=== PATIENT | male | born 1950 | race Caucasian/White ===

== ENCOUNTER 2018-10-18 10:57 | Emergency (ER) | payer OTHER ==
[~2018-10-18] VITALS: Ht 177.8 cm; Wt 94.3 kg
[2018-10-18 11:02] VITALS: Ht 177.8 cm; Wt 94.3 kg
[2018-10-18 14:03] VITALS: BP 145/71
== END 2018-10-18 14:03 | disposition home or self-care (01) ==
LOC: ED 10:57
DX: L03.011 Cellulitis of right finger (principal); I10 Essential (primary) hypertension; E11.9 Type 2 diabetes mellitus without complications; E78.00 Pure hypercholesterolemia, unspecified